=== PATIENT | male | born 1980 | race Hispanic/Latino ===

== ENCOUNTER 2022-02-21 19:01 | Inpatient (IN) | payer OTHER ==
[~2022-02-21 19:01] MED LIST: Iopamidol 370 76% 100 ML VIAL ONE
[2022-02-21] MEDS ORDERED: Morphine 4 MG/ML VIAL ONE ×2 (20:04→20:55)
[2022-02-21] MEDS ORDERED: Ondansetron PF 4 MG/2 ML Vial ONE ×2 (20:04→20:27)
[2022-02-21 20:17] LABS: #Eosinphils 0.1 thou/uL (0.0-0.7); #Monocytes 0.7 thou/uL (0.11-0.59); #Neutrophils 7.9 thou/uL (1.40-6.50); %Basophils 0.1 % (0.0-1.0); %Eosinophils 1.2 % (0.0-10.0); %Lymphocytes 18.3 % (21.0-51.0); %Monocytes 6.3 % (0.0-10.0); %Neutrophils 74.1 % (42.0-75.0); Hemoglobin 15.4 g/dL (14.0-18.0); Mean Corpuscular HGB CONC 35.2 g/dL (32.0-36.0); Mean Corpuscular Hemoglobin 29.9 pg (27.0-31.0); Mean Corpuscular Volume 85.1 fl (78.0-98.0); Mean Platelet Volume 10.5 fL (7.4-10.4); Platelet Count 103 10x3/uL (130-400); RBC Distribution Width 11.9 % (11.5-14.5); Red Blood Cell (RBC) Count 5.15 mill/uL (4.70-6.10); White Blood Cell (WBC) Count 10.7 10x3/uL (4.8-10.8)
[2022-02-21 21:02] LABS: ALT (SGPT) 23 U/L (8-55); AST (SGOT) 22 U/L (5-34); Albumin 4.7 g/dL (3.5-5.0); Alkaline Phosphatase 73 U/L (40-110); Anion Gap 15 mmol/L (10-20); BUN (Urea Nitrogen) 18 mg/dL (8.9-20.6); Bilirubin, Total 0.7 mg/dL (0.2-1.2); Calc. Creatinine Clearance 0 mL/min (70-130); Calcium 9.2 mg/dL (7.8-10.44); Carbon Dioxide 22 mmol/L (22-29); Chloride 104 mmol/L (98-107); Estimated GFR 113; Globulin 2.9 g/dL (2.4-3.5); Glucose 249 mg/dL (70-105); Lipase 30 U/L (8-78); Potassium 3.9 mmol/L (3.5-5.1); Protein, Total 7.6 g/dL (6.0-8.3); Sodium 137 mmol/L (136-145)
[2022-02-21] MEDS ORDERED: Dextrose 50% Abboject 50 ML SYRINGE SLOW IVP PRN (22:12)
[2022-02-21] MEDS ORDERED: TETANUS, DIPHTHERIA TOX,ADULT (TDVAX) 0.5 ML VIAL IM ONE (22:12)
[2022-02-21] MEDS ORDERED: Dextrose 5% in Water 1,000 ML IV PRN (22:12)
[2022-02-21] MEDS ORDERED: hydrALAZINE 20 MG/ML VIAL SLOW IVP PRN (22:12)
[2022-02-21] MEDS ORDERED: traMADol HCl 50 MG TAB PO PRN (22:16)
[2022-02-21] MEDS ORDERED: Morphine 4 MG/ML VIAL SLOW IVP PRN (22:28)
[2022-02-21] MEDS ORDERED: Ketorolac Tromethamine 30 MG/ML VIAL IVP SCH (22:30)
[2022-02-22 00:02] VITALS: BMI 33.0
[2022-02-22] MEDS: Acetaminophen 500 MG TAB PO SCH ×5 (00:22→23:15)
[2022-02-22] MEDS: Cyclobenzaprine 10 MG TAB PO PRN ×3 (00:22→19:55)
[2022-02-22] MEDS: traMADol HCl 50 MG TAB PO SCH ×5 (00:22→23:14)
[2022-02-22] MEDS: Sodium Chloride 0.9% 1,000 ML IV SCH ×3 (00:23→12:31)
[2022-02-22] MEDS: Morphine 4 MG/ML VIAL SLOW IVP PRN ×3 (00:31→09:37)
[2022-02-22] MEDS: HumaLOG 300 UNITS/3 ML VIAL SC PRN (01:26)
[2022-02-22] MEDS ORDERED: Insulin Glargine 30 UNITS/0.3 ML VIAL SC SCH (03:00)
[2022-02-22 04:10] LABS: SARS-CoV-2 NAA Rapid Test Not Detected (NotDetected)
[2022-02-22 05:19] LABS: #Eosinphils 0.1 thou/uL (0.0-0.7); #Lymphocytes 2.8 thou/uL (1.20-3.40); #Monocytes 0.6 thou/uL (0.11-0.59); #Neutrophils 4.3 thou/uL (1.40-6.50); %Basophils 0.2 % (0.0-1.0); %Eosinophils 1.6 % (0.0-10.0); %Lymphocytes 35.9 % (21.0-51.0); %Monocytes 7.9 % (0.0-10.0); %Neutrophils 54.4 % (42.0-75.0); Hemoglobin 13.4 g/dL (14.0-18.0); Mean Corpuscular Hemoglobin 30.3 pg (27.0-31.0); Mean Corpuscular Volume 86.5 fl (78.0-98.0); Mean Platelet Volume 10.5 fL (7.4-10.4); Platelet Count 100 10x3/uL (130-400); Red Blood Cell (RBC) Count 4.43 mill/uL (4.70-6.10); White Blood Cell (WBC) Count 7.8 10x3/uL (4.8-10.8)
[2022-02-22 05:28] LABS: PTT 24.6 sec (22.9-36.1); Prothrombin Time 13.9 sec (12.0-14.7)
[2022-02-22 05:46] LABS: Phosphorus 3.4 mg/dL (2.3-4.7)
[2022-02-22 05:48] LABS: Anion Gap 10 mmol/L (10-20); BUN (Urea Nitrogen) 17 mg/dL (8.9-20.6); Calc. Creatinine Clearance 213 mL/min (70-130); Calcium 8.5 mg/dL (7.8-10.44); Carbon Dioxide 25 mmol/L (22-29); Chloride 104 mmol/L (98-107); Estimated GFR 117; Glucose 174 mg/dL (70-105); Magnesium 1.9 mg/dL (1.6-2.6); Potassium 4.1 mmol/L (3.5-5.1); Sodium 135 mmol/L (136-145)
[2022-02-22] MEDS ORDERED: Ketorolac Tromethamine 30 MG/ML VIAL IVP SCH (06:00)
[2022-02-22] MEDS ORDERED: CEFAZOLIN 2 GM in Sodium Chloride 0.9% 100 ML IVPB SCH (07:15)
[2022-02-22] MEDS: Senokot S 8.6-50 MG TAB PO SCH ×2 (08:50→19:55)
[2022-02-22] MEDS ORDERED: Magnesium 2 GM/50 ML(in water) 2 GM in Premix Bag 1 BAG IVPB SCH (09:00)
[2022-02-22] MEDS ORDERED: Famotidine/PF 20 mg/2ml Vial SLOW IVP SCH (09:00)
[2022-02-22] MEDS: Ketorolac Tromethamine 30 MG/ML VIAL IVP SCH ×3 (12:30→23:14)
[2022-02-22] MEDS ORDERED: Famotidine/PF 20 mg/2ml Vial ONE (14:09)
[2022-02-22] MEDS ORDERED: fentaNYL PF 100 MCG/2 ML SYRINGE ONE ×2 (14:09→15:14)
[2022-02-22] MEDS ORDERED: CEFAZOLIN 2 GM VIAL ONE (14:53)
[2022-02-22] MEDS ORDERED: Sodium Chloride 0.9% 100 ML ONE (14:54)
[2022-02-22] MEDS ORDERED: Midazolam HCl 2 mg/2 ml Vial ONE (15:14)
[2022-02-22] MEDS ORDERED: PROPOFOL 200 MG/20 ML VIAL ONE (15:15)
[2022-02-22] MEDS ORDERED: Ondansetron PF 4 MG/2 ML Vial ONE (15:15)
[2022-02-22] MEDS ORDERED: FENTANYL 50 MCG/ML 1 ML VIAL ONE ×2 (17:36→18:59)
[2022-02-22] MEDS ORDERED: Ketorolac Tromethamine 30 MG/ML VIAL ONE (17:46)
[2022-02-22] MEDS ORDERED: Morphine 4 MG/ML VIAL SLOW IVP PRN (19:04)
[2022-02-22] MEDS: Gabapentin 300 MG CAP PO SCH (19:55)
[2022-02-22] MEDS: Famotidine 20 MG TAB PO SCH (19:56)
[2022-02-22] MEDS: Insulin Glargine 30 UNITS/0.3 ML VIAL SC SCH (19:56)
[2022-02-22] MEDS: Ondansetron PF 4 MG/2 ML Vial IVP PRN (19:59)
[2022-02-22] MEDS: CEFAZOLIN 2 GM in Sodium Chloride 0.9% 100 ML IVPB SCH (23:13)
[2022-02-23] MEDS: Acetaminophen 500 MG TAB PO SCH ×2 (05:04→11:20)
[2022-02-23] MEDS: traMADol HCl 50 MG TAB PO SCH ×3 (05:05→17:09)
[2022-02-23] MEDS: CEFAZOLIN 2 GM in Sodium Chloride 0.9% 100 ML IVPB SCH (05:05)
[2022-02-23] MEDS: Ketorolac Tromethamine 30 MG/ML VIAL IVP SCH (05:05)
[2022-02-23] MEDS: Cyclobenzaprine 10 MG TAB PO PRN ×3 (05:10→17:44)
[2022-02-23 05:55] LABS: #Eosinphils 0.1 thou/uL (0.0-0.7); #Lymphocytes 2.4 thou/uL (1.20-3.40); #Monocytes 0.6 thou/uL (0.11-0.59); #Neutrophils 4.1 thou/uL (1.40-6.50); %Basophils 0.1 % (0.0-1.0); %Eosinophils 1.7 % (0.0-10.0); %Lymphocytes 32.9 % (21.0-51.0); %Neutrophils 57.3 % (42.0-75.0); Hemoglobin 12.1 g/dL (14.0-18.0); Mean Corpuscular HGB CONC 32.9 g/dL (32.0-36.0); Mean Corpuscular Volume 88.2 fl (78.0-98.0); Mean Platelet Volume 10.4 fL (7.4-10.4); Platelet Count 99 10x3/uL (130-400); RBC Distribution Width 11.9 % (11.5-14.5); Red Blood Cell (RBC) Count 4.19 mill/uL (4.70-6.10); White Blood Cell (WBC) Count 7.2 10x3/uL (4.8-10.8)
[2022-02-23 06:12] LABS: Anion Gap 10 mmol/L (10-20); BUN (Urea Nitrogen) 14 mg/dL (8.9-20.6); Calc. Creatinine Clearance 207 mL/min (70-130); Calcium 8.1 mg/dL (7.8-10.44); Carbon Dioxide 25 mmol/L (22-29); Chloride 106 mmol/L (98-107); Estimated GFR 117; Glucose 193 mg/dL (70-105); Phosphorus 3.5 mg/dL (2.3-4.7); Potassium 4.1 mmol/L (3.5-5.1); Sodium 137 mmol/L (136-145)
[2022-02-23] MEDS: Enoxaparin Sodium 30 MG/0.3 ML SYRINGE SC SCH ×2 (08:28→20:57)
[2022-02-23] MEDS: Senokot S 8.6-50 MG TAB PO SCH ×2 (08:29→20:48)
[2022-02-23] MEDS: Famotidine 20 MG TAB PO SCH ×2 (08:29→20:48)
[2022-02-23] MEDS: Gabapentin 300 MG CAP PO SCH ×3 (08:29→20:48)
[2022-02-23] MEDS: Polyethylene Glycol 3350 17 GM Packet PO SCH (08:32)
[2022-02-23] MEDS: HumaLOG 300 UNITS/3 ML VIAL SC PRN ×2 (12:46→17:44)
[2022-02-23] MEDS ORDERED: Ibuprofen 200 MG TAB PO PRN (13:13)
[2022-02-23] MEDS ORDERED: Acetaminophen/Codeine 30-300mg Tablet PO SCH ×2 (17:15→23:59)
[2022-02-23] MEDS: Ondansetron PF 4 MG/2 ML Vial IVP PRN (17:57)
[2022-02-23] MEDS: Insulin Glargine 30 UNITS/0.3 ML VIAL SC SCH (20:48)
[2022-02-23] MEDS: Acetaminophen/Codeine 30-300mg Tablet PO SCH (20:55)
[2022-02-23] MEDS: Ibuprofen 200 MG TAB PO SCH (20:56)
[2022-02-24] MEDS: Cyclobenzaprine 10 MG TAB PO PRN ×2 (00:22→08:07)
[2022-02-24] MEDS: traMADol HCl 50 MG TAB PO SCH ×2 (00:22→05:12)
[2022-02-24] MEDS: Acetaminophen/Codeine 30-300mg Tablet PO SCH ×2 (05:10→10:36)
[2022-02-24] MEDS: Ibuprofen 200 MG TAB PO SCH (05:11)
[2022-02-24 06:02] LABS: #Eosinphils 0.1 thou/uL (0.0-0.7); #Lymphocytes 1.8 thou/uL (1.20-3.40); #Monocytes 0.7 thou/uL (0.11-0.59); #Neutrophils 3.8 thou/uL (1.40-6.50); %Basophils 0.1 % (0.0-1.0); %Eosinophils 2.1 % (0.0-10.0); %Lymphocytes 28.4 % (21.0-51.0); %Monocytes 10.7 % (0.0-10.0); %Neutrophils 58.7 % (42.0-75.0); Hemoglobin 12.5 g/dL (14.0-18.0); Mean Corpuscular HGB CONC 34.5 g/dL (32.0-36.0); Mean Corpuscular Hemoglobin 30.6 pg (27.0-31.0); Mean Corpuscular Volume 88.7 fl (78.0-98.0); Mean Platelet Volume 10.2 fL (7.4-10.4); Platelet Count 89 10x3/uL (130-400); RBC Distribution Width 11.8 % (11.5-14.5); Red Blood Cell (RBC) Count 4.08 mill/uL (4.70-6.10); White Blood Cell (WBC) Count 6.4 10x3/uL (4.8-10.8)
[2022-02-24] MEDS: Famotidine 20 MG TAB PO SCH (08:00)
[2022-02-24] MEDS: Gabapentin 300 MG CAP PO SCH (08:00)
[2022-02-24] MEDS: Enoxaparin Sodium 30 MG/0.3 ML SYRINGE SC SCH (08:01)
[2022-02-24] MEDS: Senokot S 8.6-50 MG TAB PO SCH (08:01)
[2022-02-24] MEDS: Polyethylene Glycol 3350 17 GM Packet PO SCH (08:01)
[2022-02-24 08:28] VITALS: BP 148/93; TEMP 98.6
[2022-02-24] MEDS ORDERED: HYDROcodone/Acetaminophen 10/325 mg Tablet PO PRN ×2 (08:59)
== END 2022-02-24 12:15 | disposition home or self-care (01) | DRG 494 ==
LOC: ERS 19:01 → SURG A 22:16
PROVIDERS: ADMIT Surgery; ATTEND Surgery
PROC: 0QSG04Z Reposition Right Tibia with Internal Fixation Device, Open Approach (ICD-10-PCS; principal; 2022-02-22)
DX: S82.391A Other fracture of lower end of right tibia, initial encounter for closed fracture (principal); Z20.822 Contact with and (suspected) exposure to COVID-19; Z88.7 Allergy status to serum and vaccine; D69.6 Thrombocytopenia, unspecified; E11.9 Type 2 diabetes mellitus without complications; S82.401A Unspecified fracture of shaft of right fibula, initial encounter for closed fracture; V26.49XA Other motorcycle driver injured in collision with other nonmotor vehicle in traffic accident, initial encounter; Z90.49 Acquired absence of other specified parts of digestive tract
CPT/HCPCS: 29505; 36415; 36416; 71260; 74177; 80048; 80053; 83690; 83735; 84100; 85025; 85610; 85730; 96374; 96375; 96376; C1713; C1889; G0390; J1650; J1815; J1885; J2250; J2270; J2405; J2704; J3010; J3475; J3490; J7050; Q9967; S0028; U0002